=== PATIENT | female | born 1945 | race Hispanic/Latino ===

== ENCOUNTER → 2018-09-15 | Outpatient (CLI) | payer OTHER, MEDICARE ==
[~2018-09-15] MED LIST: AEC81 PO; AMIT25TA9 PO; ATOR10TA69 PO; B6 PO; BIOT10005 PO; DULO60CA44 PO; FAMO40TA7 PO; FOLI0.8T22 PO; LACT1CAP62 PO; LISI-613 PO; OMEG-98 PO; TURM500C9 PO; VITA100049 PO; VITA1CAP PO
== END | disposition home or self-care (01) ==
LOC: RAH 16:08
PROVIDERS: ATTEND Internal Medicine
DX: R10.9 Unspecified abdominal pain (principal); M41.80 Other forms of scoliosis, site unspecified
CPT/HCPCS: 74018

== ENCOUNTER 2018-11-02 13:55 | Emergency (ER) | payer OTHER, MEDICARE ==
[~2018-11-02 13:55] MED LIST changes: -LACT1CAP62 PO; -TURM500C9 PO; -VITA100049 PO
[2018-11-02 14:57] LABS: APPEARANCE,URINE CLOUDY (CLEAR); BILIRUBIN,URINE SMALL (NEGATIVE); COLOR,URINE YELLOW (YELLOW); GLUCOSE, URINE (UA) NEGATIVE (NEGATIVE); KETONES,URINE 5 mg/dL (NEGATIVE); LEUKOCYTE ESTERASE ,URINE MODERATE (NEGATIVE); NITRATE,URINE NEGATIVE (NEGATIVE); OCCULT BLOOD,URINE NEGATIVE (NEGATIVE); PROTEIN,URINE 30 (NEGATIVE); UROBILINOGEN,URINE 0.2 mg/dL (0.2-1.0)
[2018-11-02 15:08] LABS: RBC,URINE 0-1 /HPF (0-1); WBC,URINE 26-50 /HPF (0-1)
[2018-11-02 15:09] LABS: BACTERIA,URINE Moderate /HPF (None Seen); SQUAMOUS EPITHELIAL CELL,UR Few /HPF (0-2)
[2018-11-02 15:13] LABS: BASOPHILS % (AUTO) 0.2 % (0.0-5.0); HEMATOCRIT 35.3 % (36-48); LYMPHOCYTES % (AUTO) 4.2 % (21.0-51.0); MEAN CORPUSCULAR HEMOGLOBIN 32.5 pg (27.0-33.0); MEAN CORPUSCULAR HGB CONC 33.6 g/dL (32.0-36.0); MEAN CORPUSCULAR VOLUME 96.5 fL (79-99); MONOCYTES % (AUTO) 5.1 % (3.0-13.0); NEUTROPHILS % (AUTO) 90.5 % (40.0-77.0); PLATELET COUNT (AUTO) 316 K/uL (130-400); RED BLOOD CELL COUNT(AUTO) 3.66 MIL/uL (4.00-5.50); RED CELL DISTRIBUTION WIDTH 14.3 % (11.0-15.5); WHITE BLOOD COUNT (AUTO) 21.5 K/uL (4.8-10.8)
[2018-11-02 15:27] LABS: CREATININE 2.5 mg/dL (0.5-1.5); POTASSIUM 4.2 mmol/L (3.5-5.1)
[2018-11-02] MEDS ORDERED: SODIUM CHLORIDE 0.9% 1000ML 1,000 ML IV ONE (15:28)
[2018-11-02] MEDS ORDERED: ONDANSETRON HCL 4 MG/2 ML VIAL ONE (15:28)
[2018-11-02] MEDS ORDERED: CEFTRIAXONE SODIUM 1 GM ONE (15:28)
[2018-11-02 15:32] LABS: ALBUMIN 3.7 g/dL (3.5-5.0); BILIRUBIN,TOTAL 0.8 mg/dL (0.2-1.0); TOTAL PROTEIN, SERUM 8.4 g/dL (6.0-8.3)
[2018-11-02 16:13] LABS: INR 1.01 (0.85-1.15); PARTIAL THROMBOPLASTIN TIME 33.6 SEC (26.3-35.5); PROTHROMBIN TIME 10.6 SEC (9.6-11.6)
[2018-11-02] MEDS ORDERED: METRONIDAZOLE 500MG/100ML BAG 100 ML ONE (16:22)
[2018-11-02 16:35] LABS: CREATINE KINASE, TOTAL 55 U/L (21-232); MYOGLOBIN 146 ng/mL (10-92); TROPONIN I < 0.04 ng/mL (0.00-0.06)
== END 2018-11-02 18:20 | disposition home or self-care (01) ==
LOC: EDH 13:55
DX: N39.0 Urinary tract infection, site not specified (principal); R19.7 Diarrhea, unspecified; I10 Essential (primary) hypertension; E78.5 Hyperlipidemia, unspecified; F41.9 Anxiety disorder, unspecified; Z90.710 Acquired absence of both cervix and uterus; Z98.890 Other specified postprocedural states; Z88.0 Allergy status to penicillin; Z88.7 Allergy status to serum and vaccine; Z88.8 Allergy status to other drugs, medicaments and biological substances
CPT/HCPCS: 36415; 71045; 80053; 81001; 82550 ×2; 83605 ×2; 83630; 83690; 83874; 84484; 85025; 85610; 85730; 87040 ×2; 87077 ×2; 87088; 87186 ×2; 87324; 93005; 96361; 96365; 96375; 99284; J0696; J2405; J3490; J7030

== ENCOUNTER → 2018-12-02 | Outpatient (CLI) | payer OTHER, MEDICARE ==
[~2018-12-02] MED LIST changes: +IOHEXOL-350 75 ML VIAL IV ONE
== END | disposition home or self-care (01) ==
LOC: RAH 07:53
PROVIDERS: ATTEND Internal Medicine
DX: R10.84 Generalized abdominal pain (principal); M47.816 Spondylosis without myelopathy or radiculopathy, lumbar region
CPT/HCPCS: 74178; Q9967

== ENCOUNTER 2019-07-29 09:45 | Emergency (ER) | payer OTHER, MEDICARE ==
[~2019-07-29 09:45] MED LIST changes: -IOHEXOL-350 75 ML VIAL IV ONE
[2019-07-29] MEDS ORDERED: IPRATROPIUM/ALBUTEROL SULFATE 3 ML SOLUTION IH ONE (10:16)
[2019-07-29] MEDS ORDERED: ACETAMINOPHEN EXTRA STRENGTH 500 MG TABLET ONE (10:25)
[2019-07-29] MEDS ORDERED: LIDOCAINE HCL 2% VISCOUS 15 ML UDCUP ONE (11:52)
[2019-07-29] MEDS ORDERED: MAG HYDROX/AL HYDROX/SIMETH ES 30 ML SUSP UDCUP ONE (11:53)
[2019-07-29 12:32] LABS: BASOPHILS % (AUTO) 0.2 % (0.0-5.0); HEMATOCRIT 27.9 % (36-48); LYMPHOCYTES % (AUTO) 5.5 % (21.0-51.0); MEAN CORPUSCULAR HEMOGLOBIN 33.7 pg (27.0-33.0); MEAN CORPUSCULAR HGB CONC 34.9 g/dL (32.0-36.0); MEAN CORPUSCULAR VOLUME 96.5 fL (79-99); MONOCYTES % (AUTO) 6.4 % (3.0-13.0); NEUTROPHILS % (AUTO) 87.9 % (40.0-77.0); PLATELET COUNT (AUTO) 202 K/uL (130-400); RED BLOOD CELL COUNT(AUTO) 2.89 MIL/uL (4.00-5.50); RED CELL DISTRIBUTION WIDTH 13.6 % (11.0-15.5); WHITE BLOOD COUNT (AUTO) 7.9 K/uL (4.8-10.8)
[2019-07-29 12:39] LABS: CREATININE 1.1 mg/dL (0.5-1.5); POTASSIUM 3.4 mmol/L (3.5-5.1)
[2019-07-29 12:57] LABS: ALBUMIN 3.3 g/dL (3.5-5.0); BILIRUBIN,TOTAL 0.4 mg/dL (0.2-1.0); TOTAL PROTEIN, SERUM 6.7 g/dL (6.0-8.3)
[2019-07-29 14:23] LABS: APPEARANCE,URINE Clear (CLEAR); BILIRUBIN,URINE Negative (NEGATIVE); COLOR,URINE Dark Yellow (YELLOW); GLUCOSE, URINE (UA) Negative (NEGATIVE); KETONES,URINE Negative (NEGATIVE); LEUKOCYTE ESTERASE ,URINE Small (NEGATIVE); NITRATE,URINE Positive (NEGATIVE); OCCULT BLOOD,URINE Negative (NEGATIVE); PH,URINE 5.5 (5.0-8.0); PROTEIN,URINE Negative (NEGATIVE); UROBILINOGEN,URINE 0.2 mg/dL (0.2-1.0)
[2019-07-29 14:36] LABS: BACTERIA,URINE Few /HPF (None Seen); SQUAMOUS EPITHELIAL CELL,UR 0-2 /HPF (0-2)
[2019-07-29 14:37] LABS: RBC,URINE 0-1 /HPF (0-1)
[2019-07-29] MEDS ORDERED: SODIUM CHLORIDE 0.9% 100 ML IV ONE (15:01)
[2019-07-29] MEDS ORDERED: CEFTRIAXONE SODIUM 1 GM ONE (15:02)
== END 2019-07-29 15:47 | disposition home or self-care (01) ==
LOC: EDH 09:45
DX: J20.9 Acute bronchitis, unspecified (principal); N39.0 Urinary tract infection, site not specified; F41.9 Anxiety disorder, unspecified; E78.5 Hyperlipidemia, unspecified; I10 Essential (primary) hypertension; Z88.0 Allergy status to penicillin; Z88.8 Allergy status to other drugs, medicaments and biological substances
CPT/HCPCS: 36415; 71045; 80053; 81001; 83690; 85025; 87804 ×2; 94640; 96374; 99283; J0696

== ENCOUNTER → 2020-02-15 | Outpatient (CLI) | payer OTHER, MEDICARE | END | disposition home or self-care (01) | LOC: RAH 12:44 | PROVIDERS: ATTEND Internal Medicine | DX: I70.0 Atherosclerosis of aorta (principal); R05 Cough; M47.894 Other spondylosis, thoracic region | CPT/HCPCS: 71046 ==

== ENCOUNTER → 2020-07-09 | Outpatient (CLI) | payer OTHER, MEDICARE | END | disposition home or self-care (01) | LOC: RAH 13:06 | PROVIDERS: ATTEND Internal Medicine | DX: M19.042 Primary osteoarthritis, left hand (principal); M79.602 Pain in left arm | CPT/HCPCS: 73030; 73090; 73110; 73130 ==

== ENCOUNTER → 2021-02-26 | Outpatient (CLI) | payer MEDICARE ==
[~2021-02-26] MED LIST changes: +IOHEXOL 350 MG/ML 100ML INFUS..BTL IV ONE; -LISI-613 PO; +LISI20TA24 PO
== END | disposition home or self-care (01) ==
LOC: RAH 09:09
PROVIDERS: ATTEND Internal Medicine Gastroenterology
DX: R10.13 Epigastric pain (principal); R10.32 Left lower quadrant pain; Z90.49 Acquired absence of other specified parts of digestive tract
CPT/HCPCS: 74178; Q9967

== ENCOUNTER 2021-07-07 01:14 | Emergency (ER) | payer MEDICARE, OTHER ==
[~2021-07-07] VITALS: Ht 152.4 cm; Wt 68.0 kg
[~2021-07-07 01:14] MED LIST changes: -DULO60CA44 PO; +DULO60CA45 PO; -IOHEXOL 350 MG/ML 100ML INFUS..BTL IV ONE
[2021-07-07] MEDS ORDERED: ACETAMINOPHEN 325 MG TAB PO ONE (02:00)
[2021-07-07 02:15] LABS: BASOPHILS % (AUTO) 0.2 % (0.0-5.0); EOSINOPHILS % (AUTO) 0.5 % (0.0-8.0); HEMATOCRIT 28.5 % (36-48); LYMPHOCYTES % (AUTO) 3.8 % (21.0-51.0); MEAN CORPUSCULAR HEMOGLOBIN 34.3 pg (27.0-33.0); MEAN CORPUSCULAR HGB CONC 36.8 g/dL (32.0-36.0); MEAN CORPUSCULAR VOLUME 93.1 fL (79-99); MONOCYTES % (AUTO) 11.5 % (3.0-13.0); NEUTROPHILS % (AUTO) 83.6 % (40.0-77.0); PLATELET COUNT (AUTO) 217 K/uL (130-400); RED BLOOD CELL COUNT(AUTO) 3.06 MIL/uL (4.00-5.50); RED CELL DISTRIBUTION WIDTH 12.1 % (11.0-15.5); WHITE BLOOD COUNT (AUTO) 12.4 K/uL (4.8-10.8)
[2021-07-07 02:17] LABS: BILIRUBIN,URINE Small (NEGATIVE); COLOR,URINE Dark Yellow (YELLOW); GLUCOSE, URINE (UA) Negative (NEGATIVE); KETONES,URINE Trace mg/dL (NEGATIVE); LEUKOCYTE ESTERASE ,URINE Large (NEGATIVE); NITRATE,URINE Negative (NEGATIVE); OCCULT BLOOD,URINE Trace (NEGATIVE); PH,URINE 5.5 (5.0-8.0); PROTEIN,URINE POS 2+ mg/dL (NEGATIVE)
[2021-07-07 02:29] LABS: APPEARANCE,URINE SLIGHTLY CLOUDY (CLEAR)
[2021-07-07 02:49] LABS: BACTERIA,URINE Many /HPF (None Seen); RBC,URINE 0-1 /HPF (0-1)
[2021-07-07 03:02] LABS: CREATININE 1.6 mg/dL (0.5-1.5); POTASSIUM 3.9 mmol/L (3.5-5.1)
[2021-07-07 03:07] LABS: ALBUMIN 3.2 g/dL (3.5-5.0); BILIRUBIN,TOTAL 0.8 mg/dL (0.2-1.0); TOTAL PROTEIN, SERUM 7.3 g/dL (6.0-8.3)
[2021-07-07] MEDS ORDERED: CEFTRIAXONE 1G VIAL IVP ONE (04:00)
[2021-07-07 04:22] VITALS: BP 124/52
[2021-07-07] MEDS ORDERED: CEPH250S PO (05:10)
== END 2021-07-07 05:55 | disposition home or self-care (01) ==
LOC: EDH 01:14
DX: N39.0 Urinary tract infection, site not specified (principal); I10 Essential (primary) hypertension; M79.7 Fibromyalgia; Z88.0 Allergy status to penicillin; Z79.82 Long term (current) use of aspirin; Z79.899 Other long term (current) drug therapy; Z90.49 Acquired absence of other specified parts of digestive tract; Z96.653 Presence of artificial knee joint, bilateral
CPT/HCPCS: 36415; 71045; 80053; 81001; 83605; 85025; 87040 ×2; 87077 ×2; 87088; 87186 ×2; 96374; 99284; J0696

== ENCOUNTER → 2022-03-18 | Outpatient (CLI) | payer MEDICARE, OTHER ==
[~2022-03-18] MED LIST changes: +CEPH250S PO
== END | disposition home or self-care (01) ==
LOC: RAH 08:13
PROVIDERS: ATTEND Otolaryngology Plastic Surgery within the Head & Neck
DX: R22.1 Localized swelling, mass and lump, neck (principal)
CPT/HCPCS: 76536

== ENCOUNTER → 2022-04-10 | Outpatient (CLI) | payer MEDICARE, OTHER ==
[2022-04-10 08:08] LABS: INR 0.96 (0.85-1.15); PROTHROMBIN TIME 10.5 SEC (9.6-11.6)
[2022-04-10 08:10] LABS: PARTIAL THROMBOPLASTIN TIME 28.1 SEC (26.3-35.5)
== END | disposition home or self-care (01) ==
LOC: RAH 07:28
PROVIDERS: ATTEND Otolaryngology Plastic Surgery within the Head & Neck
DX: I88.9 Nonspecific lymphadenitis, unspecified (principal); I60.4 Nontraumatic subarachnoid hemorrhage from basilar artery
CPT/HCPCS: 36415; 76536; 85610; 85730

== ENCOUNTER → 2023-12-30 | Outpatient (CLI) | payer MEDICARE, OTHER ==
[2023-12-30 13:56] LABS: CREATININE 1.3 mg/dL (0.5-1.0)
== END | disposition home or self-care (01) ==
LOC: LAB 12:59
DX: R22.1 Localized swelling, mass and lump, neck (principal)
CPT/HCPCS: 36415; 82565; 84520

== ENCOUNTER → 2024-01-03 | Outpatient (CLI) | payer MEDICARE, OTHER ==
[~2024-01-03] MED LIST changes: +IOHEXOL-350 50ML VIAL IV ONE
== END | disposition home or self-care (01) ==
LOC: RAH 13:24
PROVIDERS: ATTEND Internal Medicine
DX: E04.1 Nontoxic single thyroid nodule (principal); R22.1 Localized swelling, mass and lump, neck; M47.812 Spondylosis without myelopathy or radiculopathy, cervical region
CPT/HCPCS: 70491; Q9967

== ENCOUNTER → 2024-04-14 | Outpatient (CLI) | payer MEDICARE, OTHER ==
[~2024-04-14] MED LIST changes: -IOHEXOL-350 50ML VIAL IV ONE
== END | disposition home or self-care (01) ==
LOC: RAH 13:46
PROVIDERS: ATTEND Internal Medicine
DX: R22.41 Localized swelling, mass and lump, right lower limb (principal); D17.23 Benign lipomatous neoplasm of skin and subcutaneous tissue of right leg
CPT/HCPCS: 76882

== ENCOUNTER → 2025-02-12 | Outpatient (CLI) | payer MEDICARE, OTHER ==
[~2025-02-12] MED LIST changes: +AMIT25TA21 PO; -AMIT25TA9 PO
[2025-02-12 13:23] LABS: BASOPHILS # (AUTO) 0.05 K/uL (0.00-0.20); BASOPHILS % (AUTO) 0.9 % (0.0-5.0); EOSINOPHILS # (AUTO) 0.13 K/uL (0.00-0.70); EOSINOPHILS % (AUTO) 2.3 % (0.0-8.0); HEMATOCRIT 38.1 % (36-48); IMMATURE GRANULOCYTE ABSOLUTE 0.01 K/uL (0-1); LYMPHOCYTES # (AUTO) 1.4 K/uL (1.0-4.8); LYMPHOCYTES % (AUTO) 24.1 % (21.0-51.0); MEAN CORPUSCULAR HEMOGLOBIN 33.5 pg (27.0-33.0); MEAN CORPUSCULAR HGB CONC 34.1 g/dL (32.0-36.0); MEAN CORPUSCULAR VOLUME 98.2 fL (79-99); MONOCYTES # (AUTO) 0.4 K/uL (0.1-1.0); MONOCYTES % (AUTO) 6.5 % (3.0-13.0); NEUTROPHILS # (AUTO) 3.7 K/uL (1.8-7.7); PLATELET COUNT (AUTO) 284 K/uL (130-400); RED BLOOD CELL COUNT(AUTO) 3.88 MIL/uL (4.00-5.50); WHITE BLOOD COUNT (AUTO) 5.7 K/uL (4.8-10.8)
[2025-02-12 13:35] LABS: ALBUMIN 4.1 g/dL (3.5-5.0); BILIRUBIN,TOTAL 0.5 mg/dL (0.2-1.0); CREATININE 1.2 mg/dL (0.5-1.0); POTASSIUM 4.6 mmol/L (3.5-5.1)
[2025-02-12 13:36] LABS: INR 0.96 (0.85-1.15); PROTHROMBIN TIME 10.2 SEC (9.6-11.6)
== END | disposition home or self-care (01) ==
LOC: LAB 12:43
PROVIDERS: ATTEND Internal Medicine Gastroenterology
DX: R93.2 Abnormal findings on diagnostic imaging of liver and biliary tract (principal); Z98.890 Other specified postprocedural states
CPT/HCPCS: 36415; 80053; 82105; 85025; 85610

== ENCOUNTER → 2025-02-19 | Outpatient (CLI) | payer MEDICARE, OTHER ==
[~2025-02-19] MED LIST changes: +IOHEXOL-350 75 ML VIAL IV ONE
--- NOTE | 2025-02-19 11:26 | HMCIMG ---
CT ABDOMEN W/WO CONTRAST HISTORY: Abnormal findings COMPARISON: 02/26/2021 TECHNIQUE: Multiple sequential axial images of the abdomen were obtained from the dome of the diaphragm through iliac crests. Patient was not given contrast through intravenous route. Oral contrast was a small hiatal hernia is seen. No bowel obstruction is seen. given. FINDINGS: No pleural effusion is seen bilaterally. There is no evidence of parenchymal disease or pulmonary nodule of the visualized lower lungs. Degenerative changes are seen of the thoracolumbar spine. Liver measures 13 cm. Gallbladder has been removed. The liver, spleen, adrenal glands and pancreas are unremarkable. There is no evidence of hydronephrosis bilaterally. Tiny 2 mm right renal pelvic stone is seen. Fecal material is seen in the colon. There are normal-sized retroperitoneal and mesenteric lymph nodes. No ascites is seen. Atherosclerotic changes are present. IMPRESSION: 1. Gallbladder has been removed. No bowel obstruction is seen. No ascites is seen. CT was performed with one or more following dose reduction techniques: automated exposure control, adjustment of the mA and kv according to patient's size, or use of a iterative reconstruction technique.
== END | disposition home or self-care (01) ==
LOC: RAH 09:01
PROVIDERS: ATTEND Internal Medicine Gastroenterology
DX: N20.0 Calculus of kidney (principal); R19.5 Other fecal abnormalities; R93.2 Abnormal findings on diagnostic imaging of liver and biliary tract; M47.815 Spondylosis without myelopathy or radiculopathy, thoracolumbar region; I70.90 Unspecified atherosclerosis; Z90.49 Acquired absence of other specified parts of digestive tract
CPT/HCPCS: 74170; Q9967

== ENCOUNTER → 2025-07-23 | Outpatient (CLI) | payer MEDICARE, OTHER ==
[~2025-07-23] MED LIST changes: -IOHEXOL-350 75 ML VIAL IV ONE
--- NOTE | 2025-07-24 02:56 | HMCIMG ---
EXAM MR Cervical Spine Without IV Contrast CLINICAL HISTORY M54.2 Cervicalgia. TECHNIQUE Multiplanar multisequence magnetic resonance imaging of the cervical spine performed without intravenous contrast. Series acquired: 2 ??? LOCALIZER (TR 700.0, TE 79.6, Thk 5.0) 300 ??? SAG T2 FRFSE (TR 3498.0, TE 119.7, Thk 3.0) 400 ??? SAG T1 FSE (TR 455.0, TE 16.2, Thk 3.0) 500 ??? SAG STIR (TR 4346.0, TE 39.6, Thk 3.0) 600 ??? AX T2 FRFSE (TR 5271.0, TE 121.8, Thk 3.0) CONTRAST None. COMPARISON None provided.FINDINGS Vertebrae No acute compression fracture or focal osseous lesion. Multilevel endplate changes with Modic type II signal alterations most pronounced at C3???C4 through C6???C7. Peridiscal opposing endplate irregularities correspond to advanced disc degeneration. 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 Alignment Loss of normal cervical lordosis. Retrolisthesis of C3 over C4 (3 mm), C5 over C6 (2 mm), and C6 over C7 (2 mm), associated with facet degeneration and mild facet subluxation. Spinal Cord/Brain Cervical spinal cord shows normal calibre and signal. No intrinsic cord lesion. Visualised brainstem structures unremarkable. C2???C3 Disc height mildly reduced. Pfirrmann grade III. Canal and foramina patent. Facets grade 1. C3???C4 Advanced disc degeneration, Pfirrmann grade V, with retrolisthesis of C3 on C4. Severe canal stenosis (Adryan grade 3). Bilateral severe foraminal stenosis with bilateral exiting C4 nerve root compression. Facet arthropathy grade 3. Uncovertebral hypertrophy severe. C4???C5 Pfirrmann grade IV degeneration. Moderate???severe canal stenosis (Adryan grade 2???3). Right C5 root abutment and left C5 root displacement. Severe bilateral foraminal stenosis. Facet arthropathy grade 3. C5???C6 Pfirrmann grade IV degeneration with retrolisthesis of C5 on C6. Severe canal stenosis (Adryan grade 3). Right C6 nerve root compression; left C6 root displacement. Severe bilateral foraminal stenosis. Facet arthropathy grade 3. Marked uncovertebral hypertrophy. C6???C7 Pfirrmann grade IV degeneration with retrolisthesis of C6 on C7. Severe canal stenosis (Adryan grade 3). Severe bilateral foraminal stenosis with bilateral C7 nerve-root compression. Facets grade 3. C7???T1 Disc degeneration Pfirrmann grade III???IV. Severe canal stenosis (extension of multilevel stenosis). Bilateral severe foraminal stenosis with C8 root compression. Paraspinal Soft Tissues No mass or inflammatory collection.IMPRESSION * Multilevel advanced cervical spondylosis from C3???C4 through C7???T1 with Pfirrmann grade IV???V disc degeneration, Modic type II endplate changes, retrolisthesis at C3???C4, C5???C6, and C6???C7, and severe bilateral uncovertebral and facet arthropathy. * Severe multilevel cervical canal stenosis (Adryan grade 3) from C3???C4 through C7???T1. * Multilevel severe foraminal stenosis with nerve-root involvement: bilateral C4 root compression at C3???C4; right abutment and left displacement of C5 root at C4???C5; right C6 root compression and left displacement at C5???C6; bilateral C7 root compression at C6???C7; bilateral C8 root compression at C7???T1. 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 * Radiologic???clinical correlation: Pattern consistent with advanced multilevel degenerative cervical spine disease with significant canal and foraminal compromise corresponding to multilevel radiculopathy risk. /[place]
== END | disposition home or self-care (01) ==
LOC: RAH 09:16
PROVIDERS: ATTEND Clinical Nurse Specialist Family Health
DX: M47.22 Other spondylosis with radiculopathy, cervical region (principal); M47.813 Spondylosis without myelopathy or radiculopathy, cervicothoracic region; M48.02 Spinal stenosis, cervical region; M50.121 Cervical disc disorder at C4-C5 level with radiculopathy; M50.11 Cervical disc disorder with radiculopathy, high cervical region; M43.12 Spondylolisthesis, cervical region; M40.40 Postural lordosis, site unspecified; G44.209 Tension-type headache, unspecified, not intractable
CPT/HCPCS: 72141